=== PATIENT | male | born 2000 | race Caucasian/White ===

== ENCOUNTER 2020-04-18 21:47 | Emergency (ER) | payer MEDICAID, OTHER ==
[~2020-04-18] VITALS: Ht 178 cm; Wt 95.2 kg
[2020-04-18] MEDS ORDERED: HYOSCYAMINE 0.125 MG (LEVSIN) TAB SL ONE (22:30)
[2020-04-18] MEDS ORDERED: ONDANSETRON 4 MG (ZOFRAN) ORAL DISSOLVE TAB SL ONE (22:30)
[2020-04-18] MEDS ORDERED: ONDA4TAB11 SL (22:56)
--- NOTE | 2020-04-18 22:56 | ED General ---
General Chief Complaint: Fever-Adult/Adol Stated Complaint: DIARRHEA / FEVER/ HEADACHE Source of Information: Patient Exam Limitations: No Limitations History of Present Illness Date Seen by Provider: Apr 18, 2020 Time Seen by Provider: 22:03 Initial Comments He has notThis 18-year-old young man presents to the emergency room with a c ouple of days of headache, fever, nausea, and diarrhea. He has had no known COVID-19 or influenza exposures. Vital signs are stable. He denies any blood in his stools or vomiting. He denies any exposure to host animals such as cattle, reptiles, or poultry. He has intermittent bowel cramping and pain associated with his diarrhea. He notes urine has been concentrated recently. Allergies and Home Medications Allergies Coded Allergies: No Known Drug Allergies (Unverified , 04/18/20) Home Medications Ondansetron 4 Mg Tab.rapdis, 4 MG SL Q4H PRN for NAUSEA/VOMITING Prescribed by: ROMI VARGAS on 04/18/20 2181 Patient Home Medication List Home Medication List Reviewed: Yes Review of Systems Review of Systems Constitutional: see HPI EENTM: no symptoms reported Respiratory: cough (Slight) Cardiovascular: no symptoms reported Gastrointestinal: see HPI Genitourinary: see HPI Musculoskeletal: no symptoms reported Skin: no symptoms reported Psychiatric/Neurological: No Symptoms Reported Hematologic/Lymphatic: No Symptoms Reported Immunological/Allergic: no symptoms reported Past Bmjnnjd-Slxson-Ckyeat Hx Past Med/Social Hx: Reviewed Nursing Past Med/Soc Hx Past Medical History Surgeries: Yes Eye Surgery (Left cataract) Respiratory: Yes Asthma Cardiac: No Neurological: No Genitourinary: No Gastrointestinal: No Musculoskeletal: No Endocrine: No HEENT: No Cancer: No Psychosocial: No Physical Exam Vital Signs Capillary Refill : Height, Weight, BMI Height: '" Weight: lbs. oz. kg; BMI Method: General Appearance: No Apparent Distress, WD/WN HEENT: PERRL/EOMI, Normal ENT Inspection, Other (Mucous membranes somewhat dry) Neck: Normal Inspection Respiratory: Lungs Clear, Normal Breath Sounds, No Accessory Muscle Use Cardiovascular: Regular Rate, Rhythm, No Edema, No Murmur Gastrointestinal: Normal Bowel Sounds, Non Tender, Soft Extremity: Normal Inspection, No Pedal Edema Neurologic/Psychiatric: Alert, Oriented x3, No Motor/Sensory Deficits, Normal Mood/Affect, edger tailer II-XII Norm as Tested Skin: Normal Color, Warm/Dry Progress/Results/Core Measures Suspected Sepsis SIRS Temperature: Pulse: Respiratory Rate: Blood Pressure / Mean: Results/Orders Lab Results Laboratory Tests Test 04/18/20 22:15 Range/Units Coronavirus 2019 (CLAUDE) Negative Negative Micro Results Microbiology 04/18/20 Influenza Types A,B Antigen (VAUGHN) - Final, Complete My Orders Orders - ROMI ARECHIGA MD Influenza A And B Antigens (04/18/20 22:03) Covid 19 Inhouse Test (04/18/20 22:03) Ondansetron Oral Dissolve Tab (Zofran (04/18/20 22:30) Hyoscyamine Sl Tablet (Levsin Sl Tablet) (04/18/20 22:30) Diphenoxylate/Atropine Tablet (Lomotil T (04/18/20 23:00) Medications Given in ED Current Medications Medications Dose Ordered Sig/Ming Route Start Time Stop Time Status Last Admin Dose Admin Diphenoxylate HCl/ Atropine 1 ea ONCE ONCE PO 04/18/20 23:00 04/18/20 23:01 DC 04/18/20 23:04 1 EA Hyoscyamine Sulfate 0.25 mg ONCE ONCE SL 04/18/20 22:30 04/18/20 22:31 DC 04/18/20 22:23 0.25 MG Ondansetron HCl 4 mg ONCE ONCE SL 04/18/20 22:30 04/18/20 22:31 DC 04/18/20 22:21 4 MG Vital Signs/I&O Capillary Refill : Progress Note : Progress Note Patient received Zofran and Levsin. This did improve his nausea and he was able to drink well. However, this did not improve his bowel cramping much. He was additionally given Lomotil prior to discharge. Covid and influenza tests were negative. Departure Impression Primary Impression: Diarrhea Qualified Codes: R19.7 - Diarrhea, unspecified Additional Impression: Nausea Disposition: 01 HOME, SELF-CARE Condition: Improved Departure-Patient Inst. Decision time for Depature: 22:54 Patient Instructions: Diarrhea in Adolescents and Adults Add. Discharge Instructions: Start with a clear liquid diet and gradually advance your diet with small quantities of bland food as tolerated. Avoid fatty or greasy foods or dairy products until diarrhea has resolved for at least 48 hours. You may use Tylenol and/or ibuprofen for pain. You may also use Imodium ubto-ygr-oinomjd to help with diarrhea and cramping. Use the Zofran (ondansetron) as prescribed for nausea and vomiting. Return to care if you have worsening symptoms. Call with questions or concerns. All discharge instructions reviewed with patient and/or family. Voiced underst anding. Scripts Ondansetron (Ondansetron Odt) 4 Mg Tab.rapdis 4 MG SL Q4H PRN for NAUSEA/VOMITING, #10 TAB Prov: ROMI ARECHIGA MD 04/18/20 Work/School Note: Work Release Form Date Seen in the Emergency Department: Apr 18, 2020 Return to Work: Apr 20, 2020 Restrictions: Return-No Fever (24hrs), Return-No Vomiting(24hrs) ROMI ARECHIGA MD Apr 18, 2020 22:56
[2020-04-18] MEDS ORDERED: DIPHENOXYLATE/ATROPINE 2.5MG/0.025MG (LOMOTIL) TAB PO ONE (23:00)
== END 2020-04-18 23:10 | disposition home or self-care (01) ==
LOC: ER 21:50
DX: R19.7 Diarrhea, unspecified (principal); R11.0 Nausea; Z20.822 Contact with and (suspected) exposure to COVID-19
CPT/HCPCS: 87804; 99282; U0002; 87635

== ENCOUNTER 2020-06-30 00:11 | Emergency (ER) | payer MEDICAID ==
[~2020-06-30] VITALS: Ht 177.8 cm; Wt 95.2 kg
[~2020-06-30 00:11] MED LIST: ONDA4TAB11 SL
--- NOTE | 2020-06-30 00:30 | ED Cough/URI ---
General Stated Complaint: SORE THROAT,SOB,COUGH Source: patient Exam Limitations: no limitations History of Present Illness Date Seen by Provider: June 30, 2020 Time Seen by Provider: 00:20 Initial Comments Patient is a 19-year-old male who presents to the emergency department today with a chief complaint of body aches, congestion, cough and sore throat. John [place] states his symptoms have been coming on for 2 to 3 days. He has been taking vpmh-tew-gclkrvk Tylenol as well as DayQuil. Patient states his last dose of DayQuil was about 3 hours ago. Patient states that he came to the emergency room this evening after he woke up with a coughing fit and vomited. Patient denies any known fevers. He denies abdominal pain, nausea, diarrhea. No urinary complaints. He states his child had the flu and tested positive for the flu last week. Patient does smoke cigarettes. He has had a history of pneumonia and bronchitis in the past. All other review of systems reviewed and negative except as stated above. Timing/Duration: getting worse Severity/Quality: productive cough Prior Episodes/Possible Cause: occasional episodes Modifying Factors: Improves With Coughing Associated Symptoms: muscle aches, nasal congestion, nasal drainage, shortness of breath, sore throat Allergies and Home Medications Allergies Coded Allergies: No Known Drug Allergies (Unverified , 04/18/20) Home Medications Ondansetron 4 Mg Tab.rapdis, 4 MG SL Q4H PRN for NAUSEA/VOMITING Prescribed by: ROMI VARGAS on 04/18/20 9715 Patient Home Medication List Home Medication List Reviewed: Yes Review of Systems Review of Systems Constitutional: see HPI EENTM: throat pain, throat swelling Respiratory: cough, phlegm, short of breath Cardiovascular: no symptoms reported Gastrointestinal: vomiting (Posttussive emesis) Genitourinary: no symptoms reported Musculoskeletal: other (Body aches) Skin: no symptoms reported All Other Systems Reviewed Negative Unless Noted: Yes Past Xhedume-Dtmelt-Izrztd Hx Patient Social History Recent Hopitalizations: No Seasonal Allergies Seasonal Allergies: No Past Medical History Surgeries: Yes Eye Surgery Respiratory: Yes Asthma Cardiac: No Neurological: No Genitourinary: No Gastrointestinal: No Musculoskeletal: No Endocrine: No HEENT: No Cancer: No Psychosocial: No Blood Disorders: No Physical Exam Vital Signs - First Documented 06/30/20 00:23 Temp 36.7 Pulse 81 Resp 18 B/P (MAP) 140/78 (98) Pulse Ox 98 O2 Delivery Room Air Capillary Refill : Height: '" Weight: lbs. oz. kg; 30.00 BMI Method: General Appearance: WD/WN, no apparent distress Eyes: Bilateral Eye Normal Inspection, Bilateral Eye PERRL, Bilateral Eye EOMI HEENT: normal ENT inspection, TMs normal, pharynx normal Neck: full range of motion, supple, normal inspection Respiratory: no respiratory distress, no accessory muscle use, wheezing (Faint expiratory wheezes noted to the right base. Scattered rhonchi in the right lung) Cardiovascular: regular rate, rhythm Gastrointestinal: non tender, soft Extremities: non-tender, normal inspection, no pedal edema, no calf tenderness Neurologic/Psychiatric: alert, normal mood/affect, oriented x 3 Skin: normal color, warm/dry Progress/Results/Core Measures Suspected Sepsis SIRS Temperature: Pulse: Respiratory Rate: Blood Pressure / Mean: Results/Orders Micro Results Microbiology 06/30/20 Influenza Types A,B Antigen (VAUGHN) - Final, Complete My Orders Orders - DAMI MCLAIN MD Influenza A And B Antigens (06/30/20 00:30) Chest 1 View, Ap/Pa Only (06/30/20 00:30) Vital Signs/I&O 06/30/20 00:23 Temp 36.7 Pulse 81 Resp 18 B/P (MAP) 140/78 (98) Pulse Ox 98 O2 Delivery Room Air Capillary Refill : Diagnostic Imaging Diagonstic Imaging: Xray Plain Films/CT/US/NM/MRI: chest Comments Chest x-ray negative for infiltrate and effusion, normal mediastinum, normal bony thorax Departure Impression Primary Impression: Upper respiratory infection Qualified Codes: J06.9 - Acute upper respiratory infection, unspecified Disposition: HOME, SELF-CARE Condition: Stable Departure-Patient Inst. Decision time for Depature: 00:58 Referrals: [facility] [place] PHYSICIAN (PCP) Primary Care Physician Patient Instructions: Viral Upper Respiratory Infection, Adult (DC) Add. Discharge Instructions: Drink plenty of fluids to stay well-hydrated Continue tixp-xpy-jhvhfjk DayQuil/NyQuil as needed for congestion and cough. Use the Tessalon perles every 8 hours as needed for cough. Try and stop smoking. Come back to the emergency room for fever, worsening shortness of breath cough or other emergent concerning symptoms. Scripts Benzonatate (TESSALON PERLES) 100 Mg Capsule 200 MG PO Q8H for Cough, #20 CAP Prov: DAMI MCLAIN MD 06/30/20 DAMI MCLAIN MD June 30, 2020 00:30
[2020-06-30] MEDS ORDERED: BENZ100C18 PO (01:01)
[2020-06-30 01:03] VITALS: BP 132/73
[2020-06-30] MEDS ORDERED: BENZONATATE 100 MG (TESSALON) CAPSULE PO SCH (01:15)
--- NOTE | 2020-06-30 08:52 | Diagnostic Imaging Report ---
EXAMINATION: Chest 1 view HISTORY: cough wheeze sob COMPARISON: None available. FINDINGS: Heart size and pulmonary vasculature are normal. The lungs are clear without consolidation, pleural effusion, or pneumothorax. The osseous structures are intact. IMPRESSION: 1. No acute radiographic abnormality in the chest. Dictated by: Dictated on workstation # [id number]
== END 2020-06-30 01:09 | disposition home or self-care (01) ==
LOC: EDUNIT# 00:11 → ER 00:14
DX: J06.9 Acute upper respiratory infection, unspecified (principal); J45.909 Unspecified asthma, uncomplicated; F17.210 Nicotine dependence, cigarettes, uncomplicated
CPT/HCPCS: 71045; 87804

== ENCOUNTER 2020-09-06 14:16 | Emergency (ER) | payer MEDICAID ==
[~2020-09-06 14:16] MED LIST changes: +BENZ100C18 PO
== END 2020-09-06 14:43 | disposition left against medical advice (07) ==
LOC: EDUNIT# 14:16 → ER 14:17
DX: R10.32 Left lower quadrant pain (principal)

== ENCOUNTER 2020-09-16 00:20 | Emergency (ER) | payer MEDICAID ==
[~2020-09-16] VITALS: Ht 180 cm; Wt 90.0 kg
[2020-09-16 01:38] VITALS: BP 124/93
--- NOTE | 2020-09-16 01:46 | ED Cough/URI ---
General Chief Complaint: Respiratory Problems Stated Complaint: COVID EXPOSED / SOB / ESPINAL Nursing Triage Note: Patient states shortness of breath x 3 days that has become progressively worse. States known exposure to covid. Source: patient Allergies and Home Medications Allergies Coded Allergies: No Known Drug Allergies (Unverified , 04/18/20) Home Medications Benzonatate 100 Mg Capsule, 200 MG PO Q8H Prescribed by: DAMI MCLAIN on 06/30/20 0101 Ondansetron 4 Mg Tab.rapdis, 4 MG SL Q4H PRN for NAUSEA/VOMITING Prescribed by: ROMI VARGAS on 04/18/20 2776 Past Svibbpk-Edthxx-Dxqyka Hx Seasonal Allergies Seasonal Allergies: No Past Medical History Surgeries: Yes Eye Surgery Respiratory: Yes Asthma Cardiac: No Neurological: No Genitourinary: No Gastrointestinal: No Musculoskeletal: No Endocrine: No HEENT: No Cancer: No Psychosocial: No Blood Disorders: No Physical Exam Vital Signs - First Documented 09/16/20 01:38 Pulse 73 Resp 16 B/P (MAP) 124/93 (103) Pulse Ox 97 O2 Delivery Room Air Capillary Refill : Less Than 3 Seconds Height: '" Weight: lbs. oz. kg; 33.00 BMI Method: Progress/Results/Core Measures Suspected Sepsis SIRS Temperature: Pulse: 73 Respiratory Rate: 16 Blood Pressure 124 /93 Mean: 103 Results/Orders Lab Results Laboratory Tests Test 09/16/20 00:43 Range/Units Influenza Type A (RT-PCR) Not Detected Not Detecte Influenza Type B (RT-PCR) Not Detected Not Detecte SARS-CoV-2 RNA (RT-PCR) Not Detected Not Detecte My Orders Orders - BHAVESH ANNA DO Covid 19 Inhouse Test (09/16/20 00:45) Influenza A And B By Pcr (09/16/20 00:45) Vital Signs/I&O 09/16/20 01:38 Pulse 73 Resp 16 B/P (MAP) 124/93 (103) Pulse Ox 97 O2 Delivery Room Air Capillary Refill : Less Than 3 Seconds Blood Pressure Mean: 103 Departure Impression Primary Impression: Exposure to COVID-19 virus Additional Impression: Person under investigation for COVID-19 Disposition: 01 HOME, SELF-CARE Condition: Stable Departure-Patient Inst. Referrals: NO,LOCAL PHYSICIAN (PCP/Family) Primary Care Physician Patient Instructions: COVID-19 (DC), Preventing the Spread of an Infectious Disease Add. Discharge Instructions: QUARANTINE ALL HOUSEHOLD MEMBERS AND CLOSE CONTACTS FOR 2 WEEKS TYLENOL AND MOTRIN NEEDED FOR PAIN OR FEVER OVER THE COUNTER MEDICATIONS FOR COUGH AND CONGESTION FOLLOW UP WITH [facility] IN 3-4 DAYS IF YOU ARE STILL HAVING SYMPTOMS, YOU MAY NEED TO BE RETESTED FOR COVID-19 AT THAT TIME All discharge instructions reviewed with patient and/or family. Voiced understanding. BHAVESH ANNA DO Sep 16, 2020 01:46
== END 2020-09-16 02:12 | disposition home or self-care (01) ==
LOC: EDUNIT# 00:20 → ER 00:22
DX: Z20.822 Contact with and (suspected) exposure to COVID-19 (principal); J45.909 Unspecified asthma, uncomplicated
CPT/HCPCS: 87636; 99282

== ENCOUNTER 2020-11-14 23:51 | Emergency (ER) | payer MEDICAID ==
[~2020-11-14] VITALS: Ht 180 cm; Wt 113.4 kg
[2020-11-15] MEDS: LIDOCAINE 2% VISCOUS 15 ML UDC ONE (01:25)
[2020-11-15] MEDS ORDERED: ONDA4TAB11 PO (02:55)
--- NOTE | 2020-11-15 02:56 | ED General ---
General Chief Complaint: Oral/Throat Problems Stated Complaint: SWOLLEN SORE THROAT Nursing Triage Note: C/O SORE THROAT X2 DAYS, DIFFICULTY SWALLOWING TONIGHT. Source of Information: Patient Exam Limitations: No Limitations History of Present Illness Date Seen by Provider: Nov 15, 2020 Time Seen by Provider: 01:15 Initial Comments This 20-year-old young man presents to the emergency room with flulike symptoms for at least 3 days. He complains of tightness for the throat and pain with swallowing. He has felt feverish and congested. He complains of headache, co ugh, shortness of breath, and dizziness. He reports having one Covid vaccination about 2 months ago. He never did schedule the second injection. He is afebrile at this time. He has had some nausea without vomiting. He took ibuprofen without relief of his sore throat. Allergies and Home Medications Allergies Coded Allergies: No Known Drug Allergies (Unverified , 04/18/20) Patient Home Medication List Home Medication List Reviewed: Yes Ondansetron (Ondansetron Odt) 4 Mg Tab.rapdis, 4 MG PO Q4H PRN for NAUSEA/VOMITING Prescribed by: ROMI VARGAS on 11/15/20 0255 Discontinued Medications Benzonatate (Tessalon Perles) 100 Mg Capsule, 200 MG PO Q8H Discontinued Reason: No Longer Taking Prescribed by: DAMI MCLAIN on 06/30/20 0101 Last Action: Discontinued Ondansetron (Ondansetron Odt) 4 Mg Tab.rapdis, 4 MG SL Q4H PRN for NAUSEA/VOMITING Discontinued Reason: No Longer Taking Prescribed by: ROMI VARGAS on 04/18/20 2256 Last Action: Discontinued Review of Systems Review of Systems Constitutional: see HPI EENTM: see HPI Respiratory: see HPI Cardiovascular: no symptoms reported Genitourinary: no symptoms reported Musculoskeletal: no symptoms reported Skin: no symptoms reported Psychiatric/Neurological: See HPI Hematologic/Lymphatic: No Symptoms Reported Past Bqhqjzy-Leiniv-Gobgwe Hx Patient Social History Tobacco Use?: Yes Tobacco type used: Cigarettes Substance use?: No Alcohol Use?: No Pt feels they are or have been: No Immunizations Up To Date First/Initial COVID19 Vaccinat: 09/12 Seasonal Allergies Seasonal Allergies: No Past Medical History Surgery/Hospitalization HX: DENIES Surgeries: Yes Eye Surgery Respiratory: Yes (COVID-19 IN FEBRUARY--NO TREATMENT OR HOSPITALIZATION) Asthma Cardiac: No Neurological: No Genitourinary: No Gastrointestinal: No Musculoskeletal: No Endocrine: No HEENT: No Cancer: No Psychosocial: No Blood Disorders: No Physical Exam Vital Signs Vital Signs - First Documented 11/15/20 00:00 Temp 37.4 Pulse 85 Resp 16 B/P (MAP) 125/85 (98) Pulse Ox 97 O2 Delivery Room Air Capillary Refill : Less Than 3 Seconds Height, Weight, BMI Height: '" Weight: lbs. oz. kg; 35.00 BMI Method: General Appearance: WD/WN, Other (Appears mildly uncomfortable) HEENT: PERRL/EOMI, Normal ENT Inspection, Pharyngeal Erythema (Mild without edema or exudate), Other (Hyperemia of the tympanic membranes) Neck: Normal Inspection Respiratory: Lungs Clear, No Accessory Muscle Use, No Respiratory Distress, Decreased Breath Sounds Cardiovascular: No Edema, No Murmur, Tachycardia Gastrointestinal: Normal Bowel Sounds, Non Tender, Soft Extremity: Normal Inspection, No Pedal Edema Neurologic/Psychiatric: Alert, Oriented x3, No Motor/Sensory Deficits, Normal Mood/Affect, ear nose and throat specialist II-XII Norm as Tested Skin: Normal Color, Warm/Dry Progress/Results/Core Measures Suspected Sepsis SIRS Temperature: Pulse: 85 Respiratory Rate: 16 Blood Pressure 125 /85 Mean: 98 Results/Orders Lab Results Laboratory Tests Test 11/15/20 01:00 Range/Units Influenza Type A Antigen NEGATIVE NEGATIVE Influenza Type B Antigen NEGATIVE NEGATIVE Group A Streptococcus Screen NEGATIVE NEGATIVE My Orders Orders - ROMI ARECHIGA MD Influenza A & B Antigens (11/15/20 01:23) Coronavirus Sars-Cov-2 So 2018 (11/15/20 01:23) Rapid Strep A Screen (11/15/20 01:23) Lidocaine 2% Viscous 15 Ml (Xylocaine Vi (11/15/20 01:24) Ondansetron Oral Dissolve Tab (Zofran (11/15/20 02:50) Medications Given in ED Current Medications Medications Dose Ordered Sig/Ming Route Start Time Stop Time Status Last Admin Dose Admin Lidocaine HCl 15 ml STK-MED ONCE .ROUTE 11/15/20 01:24 11/15/20 01:26 DC 11/15/20 01:25 5 ML Vital Signs/I&O 11/15/20 00:00 Temp 37.4 Pulse 85 Resp 16 B/P (MAP) 125/85 (98) Pulse Ox 97 O2 Delivery Room Air Capillary Refill : Less Than 3 Seconds Blood Pressure Mean: 98 Progress Note : Progress Note Patient's most concerning complaint was sore throat. He was treated with viscous lidocaine which was helpful. He was given sublingual Zofran as well for his nausea. Rapid strep and influenza test were negative. His symptoms are very suspicious for COVID-19. He was recommended to remain in quarantine until the results of his COVID-19 test is known. See discharge instructions for more discussion. Departure Impression Primary Impression: Person under investigation for COVID-19 Additional Impression: Flu-like symptoms Disposition: HOME, SELF-CARE Condition: Improved Departure-Patient Inst. Decision time for Depature: 02:51 Referrals: NO,LOCAL PHYSICIAN (PCP/Family) Primary Care Physician Patient Instructions: COVID-19 Overview Add. Discharge Instructions: Drink plenty of clear liquids to stay well-hydrated. You may take ibuprofen up to 600 mg every 6 hours and/or Tylenol (acetaminophen) up to 1000 mg every 6 hours as needed for pain or fever. Remain in isolation and quarantine until the result of your COVID-19 test is known. If positive, you must remain in quarantine for at least 10 days from onset of symptoms. If negative, you may return to regular activities 24 hours after symptoms resolved. Use the Zofran as prescribed for nausea or vomiting. Use viscous lidocaine for sore throat. Be careful eating and drinking after using viscous lidocaine as it may cause significant throat numbness and make swallowing difficult. Call with questions or concerns. Return to the ER if you have worsening symptoms. All discharge instructions reviewed with patient and/or family. Voiced understanding. Scripts Ondansetron (Ondansetron Odt) 4 Mg Tab.rapdis 4 MG PO Q4H PRN for NAUSEA/VOMITING, #10 TAB Prov: ROMI ARECHIGA MD 11/15/20 Work/School Note: Work Release Form Date Seen in the Emergency Department: Nov 15, 2020 Return to Work: Nov 17, 2020 Restrictions: Return-No Fever (24hrs), Return-No Vomiting(24hrs) Other Restrictions Listed Below: May return 24 hours after symptoms resolve if COVID negative. Restrictions: Quarantine 10 days of Covid positive. Follow health department instruction ROMI RAECHIGA MD Nov 15, 2020 02:56
[2020-11-15] MEDS: ONDANSETRON 4 MG (ZOFRAN) ORAL DISSOLVE TAB SL STA (02:59)
[2020-11-15 03:00] VITALS: BP 122/79
== END 2020-11-15 03:04 | disposition home or self-care (01) ==
LOC: EDUNIT# 23:51 → ER 23:52
DX: J11.1 Influenza due to unidentified influenza virus with other respiratory manifestations (principal); J45.909 Unspecified asthma, uncomplicated; Z72.0 Tobacco use; Z20.822 Contact with and (suspected) exposure to COVID-19
CPT/HCPCS: 87430; 87635; 87804; 99283

== ENCOUNTER 2021-08-12 19:51 | Emergency (ER) | payer MEDICAID ==
[~2021-08-12] VITALS: Ht 177.8 cm; Wt 101.6 kg
[~2021-08-12 19:51] MED LIST changes: +ONDA4TAB11 PO
--- NOTE | 2021-08-12 20:26 | ED Cough/URI ---
General Chief Complaint: Cough/Cold/Flu Symptoms Stated Complaint: CHEST PAIN, COUGH, UZAIR, ESPINAL, Nursing Triage Note: c/o cough that started last night, some increased soa today with pain on inspiration. Pt is wheezing thoughout all lobes with some coarse rhonchi in the right middle and lower lobes. Source: patient Exam Limitations: no limitations (HANY LOPEZ APRN) History of Present Illness Date Seen by Provider: Aug 12, 2021 Time Seen by Provider: 20:26 Initial Comments This is a 21-year-old male who presented to the ER with complaints of cough, chest pain, congestion, headache. States that his cough started late last night and he has been having increasing shortness of breath and pain on inspiration. States that he used his daughter's albuterol inhaler and did not have any relief. No fever, chills, nausea, vomiting, abdominal pain. He is a daily smoker. (HANY LOPEZ APRN) Allergies and Home Medications Allergies Coded Allergies: No Known Drug Allergies (Unverified , 04/18/20) Patient Home Medication List Home Medication List Reviewed: Yes (HANY LOPEZ APRN) Azithromycin (Azithromycin) 500 Mg Tablet, 500 MG PO DAILY Prescribed by: HANY LOPEZ on 08/12/212203 Methylprednisolone (Methylprednisolone Dose Pack) 4 Mg Tablet, 4 MG PO UD Prescribed by: HANY LOPEZ on 08/12/212203 Ondansetron (Ondansetron Odt) 4 Mg Tab.rapdis, 4 MG PO Q4H PRN for NAUSEA/VOMITING Prescribed by: ROMI VARGAS on 11/15/20 0255 Review of Systems Review of Systems Constitutional: see HPI EENTM: see HPI Respiratory: see HPI Cardiovascular: see HPI Gastrointestinal: no symptoms reported Genitourinary: no symptoms reported Musculoskeletal: no symptoms reported Skin: no symptoms reported Psychiatric/Neurological: No Symptoms Reported Hematologic/Lymphatic: No Symptoms Reported (HANY LOPEZ APRN) Past Ngyrbuu-Hizrrt-Talbhz Hx Patient Social History Tobacco Use?: Yes Tobacco type used: Cigarettes Smoking Status: Current Everyday Smoker Use of E-Cig and/or Vaping dev: No Substance use?: No Alcohol Use?: No Pt feels they are or have been: No (HANY LOPEZ APRN) Immunizations Up To Date First/Initial COVID19 Vaccinat: 09/12 (HANY LOPEZ APRN) Seasonal Allergies Seasonal Allergies: No (HANY LOPEZ APRN) Past Medical History Surgery/Hospitalization HX: DENIES Surgeries: Yes Eye Surgery Respiratory: Yes (COVID-19 IN FEBRUARY--NO TREATMENT OR HOSPITALIZATION) Asthma Cardiac: No Neurological: No Genitourinary: No Gastrointestinal: No Musculoskeletal: No Endocrine: No HEENT: No Cancer: No Psychosocial: No Blood Disorders: No (HANY LOPEZ APRN) Physical Exam Vital Signs - First Documented 08/12/21 08/12/21 20:04 20:20 Temp 36.3 Pulse 92 Resp 22 B/P (MAP) 135/81 (99) Pulse Ox 95 O2 Delivery Room Air O2 Flow Rate 2.00 (BHAVESH ANNA K DO) Capillary Refill : Less Than 3 Seconds (HANY LOPEZ APRN) Height: '" Weight: lbs. oz. kg; 32.00 BMI Method: General Appearance: WD/WN, no apparent distress Eyes: Bilateral Eye Normal Inspection, Bilateral Eye PERRL, Bilateral Eye EOMI HEENT: PERRL/EOMI, normal ENT inspection, pharynx normal Neck: full range of motion, normal inspection Respiratory: no respiratory distress, no accessory muscle use (increased work of breathing ), wheezing, expiration, other (coarse throughout ) Cardiovascular: regular rate, rhythm, no murmur Gastrointestinal: normal bowel sounds, non tender, soft Extremities: normal range of motion, non-tender, normal inspection Neurologic/Psychiatric: no motor/sensory deficits, alert, normal mood/affect, oriented x 3 Skin: normal color, warm/dry (HANY LOPEZ APRN) Progress/Results/Core Measures Suspected Sepsis SIRS Temperature: Pulse: 92 Respiratory Rate: 22 Laboratory Tests 08/12/21 20:20: White Blood Count 14.4H Blood Pressure 135 /81 Mean: 99 Laboratory Tests 08/12/21 20:20: Creatinine 1.09, Platelet Count 268, Total Bilirubin 0.9 08/12/21 21:23: INR Comment 1.0 (HANY LOPEZ APRN) Results/Orders Lab Results Laboratory Tests Test 08/12/21 20:13 08/12/21 20:20 08/12/21 21:23 Range/Units Influenza Type A (RT-PCR) Not Detected Not Detecte Influenza Type B (RT-PCR) Not Detected Not Detecte SARS-CoV-2 RNA (RT-PCR) Not Detected Not Detecte White Blood Count 14.4 H 4.3-11.0 10^3/uL Red Blood Count 5.56 H 4.30-5.52 10^6/uL Hemoglobin 16.2 13.3-17.7 g/dL Hematocrit 47 40-54 % Mean Corpuscular Volume 84 80-99 fL Mean Corpuscular Hemoglobin 29 25-34 pg Mean Corpuscular Hemoglobin Concent 35 32-36 g/dL Red Cell Distribution Width 13.4 10.0-14.5 % Platelet Count 268 130-400 10^3/uL Mean Platelet Volume 11.2 9.0-12.2 fL Immature Granulocyte % (Auto) 1 % Neutrophils (%) (Auto) 80 H 42-75 % Lymphocytes (%) (Auto) 13 12-44 % Monocytes (%) (Auto) 5 0-12 % Eosinophils (%) (Auto) 1 0-10 % Basophils (%) (Auto) 0 0-10 % Neutrophils # (Auto) 11.5 H 1.8-7.8 10^3/uL Lymphocytes # (Auto) 1.9 1.0-4.0 10^3/uL Monocytes # (Auto) 0.7 0.0-1.0 10^3/uL Eosinophils # (Auto) 0.2 0.0-0.3 10^3/uL Basophils # (Auto) 0.1 0.0-0.1 10^3/uL Immature Granulocyte # (Auto) 0.1 0.0-0.1 10^3/uL Neutrophils % (Manual) 75 % Lymphocytes % (Manual) 15 % Monocytes % (Manual) 9 % Eosinophils % (Manual) 1 % Blood Morphology Comment NORMAL Sodium Level 141 135-145 MMOL/L Potassium Level 3.8 3.6-5.0 MMOL/L Chloride Level 104 98-107 MMOL/L Carbon Dioxide Level 21 21-32 MMOL/L Anion Gap 16 H 5-14 MMOL/L Blood Urea Nitrogen 12 7-18 MG/DL Creatinine 1.09 0.60-1.30 MG/DL Estimat Glomerular Filtration Rate 99 BUN/Creatinine Ratio 11 Glucose Level 114 H 70-105 MG/DL Calcium Level 10.1 8.5-10.1 MG/DL Corrected Calcium 8.5-10.1 MG/DL Magnesium Level 1.8 1.6-2.4 MG/DL Total Bilirubin 0.9 0.1-1.0 MG/DL Aspartate Amino Transf (AST/SGOT) 20 5-34 U/L Alanine Aminotransferase (ALT/SGPT) 28 0-55 U/L Alkaline Phosphatase 64 40-136 U/L Creatine Kinase MB 1.5 <6.6 NG/ML Myoglobin 87.4 10.0-92.0 NG/ML Troponin I < 0.028 <0.028 NG/ML B-Type Natriuretic Peptide 31.8 <100.0 PG/ML Total Protein 8.0 6.4-8.2 GM/DL Albumin 4.8 H 3.2-4.5 GM/DL Lipase 6 L 8-78 U/L Prothrombin Time 13.2 12.2-14.7 SEC INR Comment 1.0 0.8-1.4 Activated Partial Thromboplast Time 25 24-35 SEC D-Dimer 0.21 0.00-0.49 UG/ML (BHAVESH ANNA DO) Vital Signs/I&O 08/12/21 08/12/21 08/12/21 20:04 20:20 22:14 Temp 36.3 Pulse 92 89 Resp 22 18 B/P (MAP) 135/81 (99) 117/81 Pulse Ox 95 97 94 O2 Delivery Room Air Nasal Cannula Room Air O2 Flow Rate 2.00 (BHVAESH ANNA DO) Vital Signs/I&O Capillary Refill : Less Than 3 Seconds (HANY LOPEZ APRN) Blood Pressure Mean: 99 Progress Note : Progress Note Patient examined his lungs are coarse throughout and he has expiratory wheezing. Appears to be having some kind of reactive airway to what ever irritant he was exposed to. Orders placed for albuterol 4 puffs via spacer while awaiting COVID test. Chest x-ray and basic labs obtained. Given Solu-medrol 125mg IVP in ED. Labs and imaging reviewed, relatively unremarkable. He states that the Ventolin inhaler helped much better than albuterol inhaler. He does have a 14,000 white count, negative chest, mycoplasma pneumonia 8 is prevalent in the community at this time. We will go ahead and treat with azithromycin. Reviewed plan of care with patient and he is agreeable with plan. Discharged home with Ventolin inhaler and instructed to return to the emergency department if he has any increase or worsening symptoms. Verbalized understanding. (HANY LOPEZ APRN) ECG Initial ECG Impression Date: Aug 12, 2021 Initial ECG Impression Time: 20:31 Initial ECG Rate: 88 Initial ECG Rhythm: Normal Sinus Initial ECG Impression: Normal (HANY LOPEZ APRN) Diagnostic Imaging Diagonstic Imaging: Xray Plain Films/CT/US/NM/MRI: chest Comments [facility] [place] NAME: CHRISTOPHER HUDSON [facility] REC#: [id number] PT STATUS: DEP ER : [id number] PHYSICIAN: HANY LOPEZ APRN ADMIT DATE: 08/12/21/ER Signed Date of Exam:08/12/21 CHEST 1 VIEW, AP/PA ONLY INDICATION: Chest pain. EXAMINATION: Chest 08/12/2021 COMPARISON: 06/30/2020 FINDINGS: The cardiomediastinal silhouette is unremarkable. The pulmonary vasculature is within normal limits. The lungs and pleural spaces are clear. IMPRESSION: No evidence of an acute cardiopulmonary process. Dictated by: Dictated on workstation # [id number] Dict: 08/12/212052 Trans: 08/12/212241 CVB [id number] Interpreted by: MIGUELANGEL ROJO MD Electronically signed by: MIGUELANGEL ROJO MD 08/12/212241 (HANY LOPEZ APRN) Departure Impression Primary Impression: Acute lower respiratory infection Disposition: 01 HOME, SELF-CARE Condition: Improved Departure-Patient Inst. Decision time for Depature: 22:02 (HANY LOPEZ APRN) Referrals: NO,LOCAL PHYSICIAN (PCP/Family) Primary Care Physician Patient Instructions: Pneumonia, Adult ED Add. Discharge Instructions: Plan: 1. Albuterol inhaler 4 puffs every 4 hours for wheezing or shortness of breath. 2. Take Azithromycin 500mg by mouth for 4 more days. 3. Medrol dose pack as directed. 4. Return for any new, concerning, or worsening symptoms. All discharge instructions reviewed with patient and/or family. Voiced understanding. Scripts Methylprednisolone (Methylprednisolone Dose Pack) 4 Mg Tablet 4 MG PO UD for 6 Days, #21 TAB 0 Refills FOLLOW DOSE PACK INSTRUCTIONS Prov: HANY LOPEZ MEDICAL RECORDS TECH 08/12/21 Azithromycin (Azithromycin) 500 Mg Tablet 500 MG PO DAILY for 4 Days, #5 TAB 0 Refills Prov: HANY LOPEZ APRN 08/12/21 ATTENDING PHYSICIAN NOTE: I WAS PHYSICALLY PRESENT ER PHYSICIAN, BUT I WAS NOT INVOLVED IN ANY DECISION MAKING OR ANY CARE OF THIS PATIENT. (BHAVESH ANNA DO) HANY LOPEZ APRN Aug 12, 2021 20:26 BHAVESH ANNA DO Aug 14, 2021 02:24
[2021-08-12 20:29] LABS: BASOPHILS # (AUTO) 0.1 10^3/uL (0.0-0.1); BASOPHILS % (AUTO) 0 % (0-10); EOSINOPHILS # (AUTO) 0.2 10^3/uL (0.0-0.3); EOSINOPHILS % (AUTO) 1 % (0-10); HEMATOCRIT 47 % (40-54); HEMOGLOBIN 16.2 g/dL (13.3-17.7); LYMPHOCYTES # (AUTO) 1.9 10^3/uL (1.0-4.0); LYMPHOCYTES % (AUTO) 13 % (12-44); MEAN CORPUSCULAR HEMOGLOBIN 29 pg (25-34); MEAN CORPUSCULAR HGB CONC 35 g/dL (32-36); MEAN CORPUSCULAR VOLUME 84 fL (80-99); MEAN PLATELET VOLUME 11.2 fL (9.0-12.2); MONOCYTES # (AUTO) 0.7 10^3/uL (0.0-1.0); MONOCYTES % (AUTO) 5 % (0-12); NEUTROPHILS # (AUTO) 11.5 10^3/uL (1.8-7.8); NEUTROPHILS % (AUTO) 80 % (42-75); PLATELET COUNT 268 10^3/uL (130-400); WHITE BLOOD COUNT 14.4 10^3/uL (4.3-11.0)
[2021-08-12] MEDS ORDERED: methylPREDNISolone 125 MG (Solu-MEDROL) VIAL IVP ONE (20:30)
[2021-08-12] MEDS ORDERED: RX-ALBUTEROL INHALER 8.5 GM HFA (PROAIR) IH STA (20:33)
[2021-08-12 20:52] LABS: EOSINOPHILS % (MANUAL) 1 %; LYMPHOCYTES % (MANUAL) 15 %; MONOCYTES % (MANUAL) 9 %; NEUTROPHILS % (MANUAL) 75 %; RBC MORPH NORMAL
--- NOTE | 2021-08-12 20:59 | Diagnostic Imaging Report ---
INDICATION: Chest pain. EXAMINATION: Chest 08/12/2021 COMPARISON: 06/30/2020 FINDINGS: The cardiomediastinal silhouette is unremarkable. The pulmonary vasculature is within normal limits. The lungs and pleural spaces are clear. IMPRESSION: No evidence of an acute cardiopulmonary process. Dictated by: Dictated on workstation # [id number]
[2021-08-12] MEDS ORDERED: AZITHROMYCIN 250 MG TAB (ZITHROMAX) PO ONE (21:00)
[2021-08-12 21:06] LABS: ALANINE AMINOTRANSFERASE 28 U/L (0-55); ALBUMIN 4.8 GM/DL (3.2-4.5); ALKALINE PHOSPHATASE 64 U/L (40-136); BILIRUBIN,TOTAL 0.9 MG/DL (0.1-1.0); BUN/CREATININE RATIO 11; CALCIUM 10.1 MG/DL (8.5-10.1); CARBON DIOXIDE 21 MMOL/L (21-32); CHLORIDE 104 MMOL/L (98-107); CREATININE SERUM 1.09 MG/DL (0.60-1.30); GFR ESTIMATED 99; GLUCOSE 114 MG/DL (70-105); LIPASE 6 U/L (8-78); MAGNESIUM 1.8 MG/DL (1.6-2.4); POTASSIUM 3.8 MMOL/L (3.6-5.0); SODIUM 141 MMOL/L (135-145)
[2021-08-12] MEDS ORDERED: RT-ALBUTEROL/IPRATROPIUM 3 ML (DUONEB) VIAL INH ONE (21:15)
[2021-08-12 21:18] LABS: CREATINE KINASE MB 1.5 NG/ML (<6.6)
[2021-08-12 21:49] LABS: PROTHROMBIN TIME PATIENT 13.2 SEC (12.2-14.7)
[2021-08-12] MEDS ORDERED: RT-ALBUTEROL HFA 8.5 GM INHALER IH SCH (22:00)
[2021-08-12] MEDS ORDERED: AZIT500T9 PO (22:04)
[2021-08-12] MEDS ORDERED: METH4TAB11 PO (22:04)
[2021-08-12 22:14] VITALS: BP 117/81
== END 2021-08-12 22:13 | disposition home or self-care (01) ==
LOC: EDUNIT# 19:51 → ER 19:56
DX: J22 Unspecified acute lower respiratory infection (principal); F17.210 Nicotine dependence, cigarettes, uncomplicated; Z20.822 Contact with and (suspected) exposure to COVID-19; Z28.311 Partially vaccinated for COVID-19
CPT/HCPCS: 36415; 71045; 80053; 82553; 83690; 83735; 83874; 83880; 84484; 85007; 85027; 85379; 85610; 85730; 87636; 93005; 93041

== ENCOUNTER 2021-08-25 05:14 | Emergency (ER) | payer MEDICAID ==
[~2021-08-25 05:14] MED LIST changes: +AZIT500T9 PO; +METH4TAB11 PO
[2021-08-25 05:25] VITALS: BP 155/93
== END 2021-08-25 05:53 | disposition left against medical advice (07) ==
LOC: EDUNIT# 05:14 → ER 05:16
DX: T23.002A Burn of unspecified degree of left hand, unspecified site, initial encounter (principal); T23.032A Burn of unspecified degree of multiple left fingers (nail), not including thumb, initial encounter; F17.210 Nicotine dependence, cigarettes, uncomplicated; Z28.310 Unvaccinated for COVID-19; X08 Exposure to other specified smoke, fire and flames
CPT/HCPCS: 99281

== ENCOUNTER 2023-01-07 05:20 | Emergency (ER) | payer MEDICAID ==
[2023-01-07 05:35] VITALS: BP 140/86
[2023-01-07] MEDS ORDERED: IBUPROFEN 600 MG TABLET PO ONE (05:45)
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
--- NOTE | 2023-01-07 06:54 | Diagnostic Imaging Report ---
INDICATION: Wrist pain. COMPARISON: None FINDINGS: 3 radiographic views of the right wrist were obtained and show acute fracture through the body of the scaphoid. There is no significant displacement of fracture fragments on the images provided. Joint spaces are maintained. No unexpected radiopaque foreign bodies are seen. IMPRESSION:. Acute fracture of the scaphoid of the right wrist. May want to consider dedicated scaphoid view. Dictated by: Dictated on workstation # [id number]
[2023-01-10] MEDS ORDERED: ACHD5005 PO (13:56)
== END 2023-01-07 06:26 | disposition home or self-care (01) ==
LOC: EDUNIT# 05:20 → ER 05:24
DX: S62.001A Unspecified fracture of navicular [scaphoid] bone of right wrist, initial encounter for closed fracture (principal); L98.9 Disorder of the skin and subcutaneous tissue, unspecified; V01.9 Pedestrian injured in collision with pedal cycle, unspecified whether traffic or nontraffic accident; Y92.410 Unspecified street and highway as the place of occurrence of the external cause
CPT/HCPCS: 73110

== ENCOUNTER → 2023-01-22 | Outpatient (CLI) | payer MEDICAID ==
[~2023-01-22] MED LIST changes: +ACHD5005 PO
--- NOTE | 2023-01-22 15:22 | Diagnostic Imaging Report ---
INDICATION: Scaphoid fracture, followup. TECHNIQUE/COMPARISON: AP, oblique, and lateral views of the right wrist were obtained and compared with 03/09/2022. FINDINGS: Compared to the prior study, there is no change in alignment of the mid scaphoid fracture. The remaining structures are intact. The joint spaces are unremarkable. IMPRESSION: Stable alignment of the scaphoid fracture with no new abnormality. Dictated by: Dictated on workstation # [id number]
== END ==
LOC: ORTHO 12:34
PROVIDERS: ATTEND Orthopaedic Surgery
DX: S62.001D Unspecified fracture of navicular [scaphoid] bone of right wrist, subsequent encounter for fracture with routine healing (principal); X58.XXXD Exposure to other specified factors, subsequent encounter
CPT/HCPCS: 73110; G0463; 99203